=== PATIENT | female | born 1990 | race African-American/Black ===

== ENCOUNTER 2019-07-04 16:09 | Emergency (ER) | payer MEDICAID, OTHER ==
[~2019-07-04] VITALS: Ht 167.6 cm; Wt 105.0 kg
[2019-07-04] MEDS ORDERED: KETOROLAC 30MG/ML VIAL IM ONE (20:00)
[2019-07-04 20:03] VITALS: BP 136/94
== END 2019-07-04 21:15 | disposition home or self-care (01) ==
LOC: ER 16:09
DX: M54.6 Pain in thoracic spine (principal); R51 Headache; M54.2 Cervicalgia; V89.2XXA Person injured in unspecified motor-vehicle accident, traffic, initial encounter; Y93.89 Activity, other specified; Y92.89 Other specified places as the place of occurrence of the external cause; Y99.8 Other external cause status
CPT/HCPCS: 81025; 96372; 99283; J1885